=== PATIENT | male | born 1960 | race Caucasian/White ===

== ENCOUNTER → 2020-12-03 17:49 | Outpatient (CLI) | payer MEDICARE, OTHER ==
[2020-12-03 20:29] LABS: ALBUMIN 4.5 g/dL (3.4-5.0); ANION GAP 13.2 mmol/L (8-16); BILIRUBIN - TOTAL 0.62 mg/dL (0.2-1.3); CALCIUM 9.7 mg/dL (8.5-10.1); CARBON DIOXIDE 28.5 mmol/L (21.0-32.0); CREATININE - SERUM 1.3 mg/dL (0.6-1.3); POTASSIUM - SERUM 4.7 mmol/L (3.5-5.1); PROTEIN - SERUM 7.8 g/dL (6.4-8.2)
== END | disposition home or self-care (01) ==
LOC: D.LABREF 17:49
PROVIDERS: ATTEND Internal Medicine Cardiovascular Disease
DX: D64.9 Anemia, unspecified (principal)

== ENCOUNTER → 2020-12-10 07:52 | Outpatient (CLI) | payer MEDICARE, OTHER ==
--- NOTE | 2020-12-11 13:52 | ST ---
PATIENT:OSCAR MORENO MEDICAL RECORD: [id number] SEX: M LOCATION:[facility] ORDER #: ADMISSION DATE: 12/10/20 AGE OF PATIENT: 60 REFERRING PHYSICIAN: INTERPRETING PHYSICIAN: JOY GARCIA MD DATE OF SERVICE: 12/10/2020 NUCLEAR STRESS TEST GATED: Gated imaging was performed, this shows global LV hypokinesis with overall reduced LV function. Calculated EF 40%. SPECT IMAGING: SPECT imaging shows, Short axis view: Short axis view shows good uptake along the anterior wall, lateral wall, and inferior wall. Horizontal axis: This confirms good uptake along the anterior wall and inferior wall. Vertical axis: Vertical axis shows good uptake along the lateral wall and septum. FINAL IMPRESSION: 1. Abnormal gated with abnormal motion and reduced EF 40%. 2. Normal SPECT imaging. FINAL IMPRESSION: This gentleman with no known history of coronary artery disease. This scan would be concerning for balanced ischemia with reduction in EF from previously 60%, now 40%, would recommend diagnostic angiography for further evaluation. TRANSINT:[id number] Voice Confirmation ID: [id number] DOCUMENT ID: [id number] JOY GARCIA MD at 1352 CC: [id number] DICTATION DATE: 12/10/20 1634 ENGINEERING PROFESSOR: 12/11/20 0531 [facility] CLI 12/10/20 [id number] [place] [address]
== END | disposition home or self-care (01) ==
LOC: D.HCCARDIO 07:52
PROVIDERS: ATTEND Internal Medicine Interventional Cardiology
DX: I25.10 Atherosclerotic heart disease of native coronary artery without angina pectoris (principal)

== ENCOUNTER 2020-12-19 12:07 | Day surgery (SDC) | payer MEDICARE, OTHER ==
[~2020-12-19] VITALS: Ht 175.3 cm; Wt 98.8 kg
--- NOTE | ~2020-12-19 | HEMODYNAMI ---
PATIENT:OSCAR MORENO MEDICAL RECORD: [id number] : 62 LOCATION:[facility] ADMISSION DATE: 12/19/20 Generatedon:115:08 Patient name: OSCAR MORENO Patient #: [id number] SSN: [id number] : 1960 Date of study: 12/19/2020 Page: Of Hemodynamic Procedure Report Patient Data Patient Demographics Procedure consent was obtained First Name: OSCAR Gender: Male Last Name: TIFFANIE : 1960 Middle Initial: MENDEL Age: 60 year(s) Patient #: [id number] Race: Unknown SSN: [id number] Additional ID: [id number] Contact details [address]: [address] [place] [address] State: [place] City: [facility] Zip code: [address] Past Medical History Performed procedures and imaging results Date Procedure Procedure Results Comments Stress testing with Indeterminant SPECT MPI Allergies Allergen Reaction Date Comments Reported Other allergy 12/19/2020 LEVAQUIN, ROCEPHIN, SULFA Admission Admission Data Admission Date: 12/19/2020 Admission Time: 12:07 Arrival Date: 12/19/2020 Arrival Time: 0:00 Height (in.): 69 BSA: 2.14 (m2) Height (cm.): 175.26 BMI: 32.23 (kg/m2) Weight (lbs.): 218.26 Weight (kg.): 99 Lab Results Lab Result Date: 12/19/2020 Lab Result Time: 0:00 Biochemistry Name Units Result Min Max BUN mg/dl 22 --(----)-* 7 18 Creatinine mg/dl 1.2 --(---*)-- 0.6 1.3 eGFR ml/min 66 *-(----)-- 90 120 NONAFRICAN CBC Name Units Result Min Max Hematocrit % 40 -*(----)-- 42 54 Hemoglobin g/dl 13.4 -*(----)-- 13.5 17.5 Procedure Procedure Types Cath Procedure Diagnostic Procedure [facility] w/Coronaries Sedation Charges Moderate Sedation 10-24 minutes Procedure Description Procedure Date Procedure Date: 12/19/2020 Procedure Start Time: 14:44 Procedure End Time: 15:04 Procedure Staff Name Function Ranjeet Kaufman MD Performing Physician Katie Edwards RT Monitor Rosalva Houston RT Scrub Christelle Byrd RN Nurse Procedure Data Cath Procedure Fluoroscopy Diagnostic fluoroscopy Total fluoroscopy Time: 1.6 time: 1.6 min min Diagnostic fluoroscopy Total fluoroscopy dose: 536 dose: 536 mGy mGy Contrast Material Contrast Material Type Amount (ml) Isovue 300 63 Entry Location Entry Primary Successful Side Size Upsize Upsize Entry Closure Succes sful Closure Location (Fr) 1 (Fr) 2 (Fr) Remarks Device Remarks Femoral Right 5 Fr Exoseal artery Estimated blood loss: 5 ml Diagnostic catheters Device Type Used For End Catheter Placement MULTIPACK JL 4.0 5Fr Procedure catheter MULTIPACK 3DRC 5Fr Procedure catheter MULTIPACK Pigtail 5 Fr Procedure catheter Procedure Complications No complications Procedure Medications Medication Administration Route Dosage Oxygen etCO2 Nasal cannula 2 l/min Lidocaine 2% added to field 20 Heparin Flush Bag added to field 2 bags (1000units/500ml NS) 0.9% NaCl I.V. 100 ml/hr Versed I.V. 2 mg Zofran I.V. 4 mg Versed I.V. 2 mg Fentanyl I.V. 100 mcg Versed I.V. 2 mg Fentanyl I.V. 100 mcg Versed I.V. 2 mg Fentanyl I.V. 100 mcg Versed I.V. 2 mg Fentanyl I.V. 100 mcg Hemodynamics Rest BSA: 2.14 (m2) HGB: 13.4 (g/dl) O2 Consumption: Estimated: 237.82 (ml/min) O2 Co nsumption indexed: Estimated:111.13 (ml/min/m) Heart Rate: 53 (bpm) Pressure Samples Time Site Value (mmHg) Purpose Heart Use Rate(bpm) 14:55 LV 120/3,17 Snapshot 69 14:58 AO 104/65(81) Pullback 67 14:58 LV 108/5,16 Pullback 67 Gradients Valve Time Site 1 Site 2 Mean SEP/DFP Peak To Heart Use (mmHg) (sec/min) Peak Rate (mmHg) (bpm) Aortic 14:58 LV AO 15 5 4 67 108/5,16 104/65(81) Calculations Valve P-P Mean Valve Index Valve Source Name Gradient Area Flow (cm2) Aortic 4 15 4 15 Snapshots Pre Cath Intra NCS Post Cath Vital Signs Time Heart Resp SPO2 etCO2 NIBP Rhythm Pain Sedation Rate (ipm) (%) (mmHg) (mmHg) Status Level (bpm) 14:06:00 53 15 100 23.8 120/68(82) SB 0 (11) 10(A) , No pain 14:10:16 54 16 100 30.5 125/73(89) SB 0 (11) 10(A) , No pain 14:14:28 55 23 100 15.6 126/83(97) SB 0 (11) 10(A) , No pain 14:18:44 55 10 100 27.6 126/79(91) SB 0 (11) 10(A) , No pain 14:22:58 58 14 99 34.3 113/72(85) NSR 0 (11) 10(A) , No pain 14:27:12 58 12 100 35 112/72(92) NSR 0 (11) 10(A) , No pain 14:31:24 53 13 99 36.5 112/69(86) NSR 0 (11) 10(A) , No pain 14:35:34 57 12 100 26.7 114/74(90) NSR 0 (11) 10(A) , No pain 14:39:48 60 15 99 10.4 112/70(85) NSR 0 (11) 10(A) , No pain 14:45:06 60 14 95 34.3 115/67(86) NSR 0 (11) 9(A) , No pain 14:49:18 56 12 100 30 115/76(93) NSR 0 (11) 9(A) , No pain 14:53:30 67 15 98 33.5 128/79(94) NSR 0 (11) 9(A) , No pain 14:57:48 67 12 99 15.6 112/66(84) NSR 0 (11) 10(A) , No pain 15:01:56 65 13 100 33.5 125/74(87) NSR 0 (11) 10(A) , No pain Medications Time Medication Route Dose Verified Delivered Reason Notes Eff ectiveness by by 14:07:59 Oxygen etCO2 2 Ranjeet Buffie used for Nasal l/min Mandeep Byrd RN procedure cannula 14:08:05 Lidocaine 2% added 20ml Ranjeet Ranjeet for local to vial Mandeep Kaufman MD anesthetic field 14:08:14 Heparin Flush added 2 Ranjeet Ranjeet used for Bag to bags Mandeep Kaufman MD procedure (1000units/500ml field NS) 14:08:24 0.9% NaCl I.V. 100 Ranjeet Buffie Per ml/hr Mandeep Byrd RN physician 14:10:34 Zofran I.V. 4 mg Ranjeet Buffie Per Mandeep Byrd RN physician 14:12:10 Versed I.V. 2 mg Ranjeet Buffie for Mandeep Byrd RN anxiety 14:43:50 Versed I.V. 2 mg Ranjeet Buffie for Mandeep Byrd RN anxiety 14:43:57 Fentanyl I.V. 100 Ranjeet Buffie for mcg Mandeep Byrd RN sedation 14:47:19 Versed I.V. 2 mg Ranjeet Buffie for Mandeep Byrd RN anxiety 14:47:23 Fentanyl I.V. 100 Ranjeet Buffie for mcg Mandeep Byrd RN sedation 14:51:10 Versed I.V. 2 mg Ranjeet Buffie for Mandeep Byrd RN anxiety 14:51:14 Fentanyl I.V. 100 Ranjeet Buffie for mcg Mandeep Byrd RN sedation 14:55:08 Versed I.V. 2 mg Ranjeet Buffie for Mandeep Byrd RN anxiety 14:55:12 Fentanyl I.V. 100 Ranjeet Buffie for mcg Mandeep Byrd RN sedation Procedure Log Time Note 13:40:00 Christelle Byrd RN sent for patient. Start room use. 13:41:40 Informed consent obtained and on chart 13:42:01 Procedure Status Elective Heart Cath (OP). 13:42:03 Time tracking: Regular hours (M-F 7:00 - 5:00) 13:42:06 Plan of Care:Hemodynamics will remain stable., Cardiac rhythm will remain stable., Comfort level will be maintained., Respiratory function will remain adequate., Patient/ family verbilizes understanding of procedure., Procedure tolerated without complication., Recovers from procedure without complications.. 13:42:54 H&P Date Dictated: 12/03/2020 Within 30 days and on chart., H&P Addendum completed by physician on day of procedure. (MUST COMPLETE FOR ALL OUTPATIENTS). 13:43:10 Patient allergic to Other allergyLEVAQUIN, ROCEPHIN, SULFA 13:49:41 Lab Result : BUN 22 mg/dl 13:49:41 Lab Result : Creatinine 1.2 mg/dl 13:49:41 Lab Result : Hemoglobin 13.4 g/dl 13:49:41 Lab Result : eGFR NONAFRICAN 66 ml/min 13:49:41 Lab Result : Hematocrit 40 % 13:50:16 Patient Weight : 218.26 lbs 13:50:20 Patient Height : 69 inches 13:50:27 Arrival Date: 12/19/2020 12:00:00 AM 13:54:33 Stress Test: yes; abnormal [employer]. DECREASED EF. 13:56:52 Patient received from Pre/Post Procedure Room to [facility] 1 Alert and oriented. Tansferred to table in Supine position. 13:56:53 Warm blankets applied, and elkin hugger turned on for patient comfort. 13:56:53 Correct patient and procedure confirmed by team. 13:56:53 ECG and BP/O2 sat monitors applied to patient. 14:04:44 Vital chart was started 14:04:46 Baseline sample Acquired. 14:04:56 Rhythm: sinus bradycardia, paced 14:04:58 Full Disclosure recording started 14:04:58 Pre-procedure instructions explained to patient. 14:04:59 Pre-op teaching completed and patient verbalized understanding. 14:05:00 Family in patients room. 14:05:01 Patient NPO since Midnight. 14:05:02 Is the patient allergic to Iodine/contrast media? No. 14:05:03 Is patient on blood thinner?No 14:05:09 Patient diabetic? No. 14:05:11 Previous problem with sedation/anesthesia? No ? 14:05:13 Snore? Yes 14:05:14 Sleep apnea? No 14:05:16 Deviated septum? No 14:05:16 Opens mouth fully? Yes 14:05:17 Sticks out tongue? Yes 14:05:19 Airway obstruction? No ? 14:05:20 Dentures? No ? 14:05:24 Pre procedure: right dorsailis pedis pulse 1+ Palpable, but thready & weak; easily obliterated 14:05:50 PT. CHOICE TO GO GROIN DUE TO UPCOMING ACTIVITIES 14:06:35 IV patent on arrival in left antecubital with 0.9% NaCl at [facility]. 14:07:11 Lab results completed and on chart. 14:07:15 Right groin area was prepped with chlora-prep and draped in sterile fashion 14:07:19 Alarms reviewed by R. N. 14:07:19 Sharps counted by scrub and verified by R.N. 14:07:22 Use device set Femoral Dx 14:07:23 ACIST Syringe (46143) opened to sterile field. 14:07:23 Bag Decanter (2002S) opened to sterile field. 14:07:24 ACIST Manifold (66043) opened to sterile field. 14:07:24 ACIST Hand Control (32932) opened to sterile field. 14:07:25 Medline Cath Pack ([id number]) opened to sterile field. 14:07:27 Tegaderm 4 x 4 (1626W) opened to sterile field. 14:07:29 DIAGNOSTIC Multipack 5Fr catheter set (CE3780) opened to sterile field. 14:07:30 SHEATH 5FR [place] (NTB090) opened to sterile field. 14:07:30 EMERALD Guide Wire (132-723) opened to sterile field. 14:07:59 Oxygen 2 l/min etCO2 Nasal cannula was administered by Christelle Byrd RN; used for procedure; Verbal order read back and verified. 14:08:05 Lidocaine 2% 20ml vial added to field was administered by Ranjeet Kaufman MD; for local anesthetic; Verbal order read back and verified. 14:08:14 Heparin Flush Bag (1000units/500ml NS) 2 bags added to field was administered by Ranjeet Kaufman MD; used for procedure; Verbal order read back and verified. 14:08:24 0.9% NaCl 100 ml/hr I.V. was administered by Christelle Byrd RN; Per physician; Verbal order read back and verified. 14:10:34 Zofran 4 mg I.V. was administered by Christelle Byrd RN; Per physician; Verbal order read back and verified. 14:12:10 Versed 2 mg I.V. was administered by Christelle Byrd RN; for anxiety; Verbal order read back and verified. 14:31:16 Zero performed for pressure channel P1 14:42:53 --------ALL STOP TIME OUT------ 14:42:54 Final Timeout: patient, procedure, and site verified with staff and physician. All members of the team are in agreement. 14:42:55 Right groin site verified by team. 14:42:59 Fire Safety Assessment: A--An alcohol-based skin anteseptic being used preoperatively., C--Open oxygen or nitrous oxide is being used., D--An ESU, laser, or fiber-optic light is being used. 14:43:02 Physical assessment completed. ASA score P 2 - A patient with mild systemic disease as per Ranjeet Kaufman MD. 14:43:05 2) 60-89 Mildly reduced kidney function, and other findings (as for stage 1) point to kidney disease. 14:43:08 Maximum allowable contrast dose (3.7 X eGFR X 0.75)183 ml. 14:43:12 Sedation plan: IV Moderate Sedation Medication:Versed, Fentanyl 14:43:50 Versed 2 mg I.V. was administered by Christelle Byrd RN; for anxiety; Verbal order read back and verified. 14:43:57 Fentanyl 100 mcg I.V. was administered by Christelle Byrd RN; for sedation; Verbal order read back and verified. 14:44:40 Procedure started. 14:44:44 Zero performed for pressure channel P1 14:44:49 Zero performed for pressure channel P1 14:44:55 Local anesthetic to right femoral artery with Lidocaine 2% by Ranjeet Kaufman MD.INITIAL ACCESS ONLY 14:47:19 Versed 2 mg I.V. was administered by Christelle Byrd RN; for anxiety; Verbal order read back and verified. 14:47:23 Fentanyl 100 mcg I.V. was administered by Christelle Byrd RN; for sedation; Verbal order read back and verified. 14:48:50 A 5 Fr sheath was inserted into the Right Femoral artery 14:49:00 A MULTIPACK JL 4.0 5Fr catheter was advanced over the wire and used for Procedure. 14:50:55 LCA angiography performed. 14:51:10 Versed 2 mg I.V. was administered by Christelle Byrd RN; for anxiety; Verbal order read back and verified. 14:51:14 Fentanyl 100 mcg I.V. was administered by Christelle Byrd RN; for sedation; Verbal order read back and verified. 14:51:30 Catheter exchanged over wire. 14:51:43 A MULTIPACK 3DRC 5Fr catheter was advanced over the wire and used for Procedure. 14:52:32 RCA angiography performed. 14:52:47 Catheter exchanged over wire. 14:52:49 ACCDominant side:Co-Dominant 14:53:10 A MULTIPACK Pigtail 5 Fr catheter was advanced over the wire and used for Procedure. 14:54:39 LV gram done using NASCIMENTO 14:54:44 Injector settings: Ml/sec: 10, Volume: 20, 14:55:08 Versed 2 mg I.V. was administered by Christelle Byrd RN; for anxiety; Verbal order read back and verified. 14:55:12 Fentanyl 100 mcg I.V. was administered by Christelle Byrd RN; for sedation; Verbal order read back and verified. 14:55:29 LV hemodynamics recorded. 14:57:30 EF : 60 % 14:59:06 Catheter removed. 14:59:09 EXOSEAL 5Fr (EX500) opened to sterile field. 15:01:03 Sheath removed intact; hemostasis achieved with Exoseal to the Right Femoral artery. 15:01:06 Procedure ended.(Physican Out) 15:01:39 Contrast amount:Isovue 300 63ml. 15:01:52 Fluoroscopy time 01.60 minutes. 15:01:57 Flurop Dose total: 536 15:01:57 Fluoroscopy dose: 536 mGy 15:02:06 Dose Area Product 64213 mGy/cm. 15:02:11 Sharps counted by scrub and verified by R.N. 15:02:14 Maximum allowable dose exceeded? No. 15:02:17 Post-op/insertion site Right Femoral artery dressed using a 4 x 4 and Tegaderm. 15:02:19 Post-procedure physical assessment completed. ASA score P 2 - A patient with mild systemic disease as per Ranjeet Kaufman MD. 15:02:22 Post procedure rhythm: sinus rhythm 15:02:26 Estimated blood loss: 5 ml 15:02:34 Post procedure instruction explained to patient.Patient verbalizes understanding. 15:02:34 Patient needs reinforcement of post procedure teaching. 15:03:41 Procedure type changed to Cath procedure, Diagnostic procedure, LHC, C w/Coronaries, Sedation Charges, Moderate Sedation 10-24 minutes 15:04:32 Procedure and supply charges have been captured, reviewed, submitted and are correct. 15:04:35 Procedure Complication : No complications 15:04:37 Vital chart was stopped 15:04:38 [facility] Findings: mild to moderate CAD (<70%) 15:04:40 Operative report dictated upon procedure completion. 15:04:40 See physician's report for complete and final results. 15:04:41 Report given to Pre/Post Procedure Room. 15:04:43 Patient transfered to Pre/Post Procedure Room with Bed. 15:04:45 Procedure ended. 15:04:45 Full Disclosure recording stopped 15:05:22 End room use (Document Last) 15:07:52 End room use (Document Last) 15:08:09 End room use (Document Last) Device Usage Item Name Manufacture Quantity Catalog Hospital Part Current Minimal L ot# / Number Charge Number Stock Stock Serial# Code ACIST Acist 1 57638 775607 267953 468429 20 Syringe Medical (93815) Systems Inc Bag Microtek 1 2001S 541919 47471 995642 5 Decanter Medical Inc. (2001S) ACIST Acist 1 35695 105545 288521 883349 5 Manifold Medical (78057) Systems Inc ACIST Hand Acist 1 09267 252391 510917 723184 5 Control Medical (24793) Systems Inc Medline Medline 1 [id number] 672318 28904 357968 5 Cath Pack ([id number]) Tegaderm 4 3M 1 1626W 860251 760998 335800 5 x 4 (1626W) DIAGNOSTIC Cardinal 1 GN1633 531920 84264 612532 30 Multipack Health 5Fr catheter set (IE1020) SHEATH 5FR [place]umo 1 QKP358 000953 172871 699708 5 [place] (GRN077) EMERALD Cardinal 1 502-455 567216 153103 491449 5 Guide Wire Health (502-660) MULTIPACK Cardinal 1 660466 5 JL 4.0 5Fr Health catheter MULTIPACK Cardinal 1 602090 5 3DRC 5Fr Health catheter MULTIPACK Cardinal 1 012675 5 Pigtail 5 Health Fr catheter EXOSEAL 5Fr Cardinal 1 EX500 047776 246788 982271 10 (EX500) Health Signature Audit [place] Stage Time Signature Unsigned Intra-Procedure 12/19/2020 Katie Edwards 3:07:52 PM RT(R) Intra-Procedure 12/19/2020 Christelle Byrd RN 3:08:09 PM Intra-Procedure 12/19/2020 Ranjeet Kaufman MD 3:08:45 PM [place] [id number] [place] [id number]
[2020-12-19] MEDS ORDERED: PROTONIX40 MG PO (12:35)
[2020-12-19] MEDS ORDERED: NORPACE100 MG PO (12:35)
[2020-12-19] MEDS ORDERED: LOPRESSOR25 MG PO (12:36)
[2020-12-19] MEDS ORDERED: COZAAR100 MG PO (12:37)
[2020-12-19] MEDS ORDERED: CHLORTHALIDONE25 MG PO (12:38)
[2020-12-19] MEDS ORDERED: ALDACTONE25 MG PO (12:38)
[2020-12-19] MEDS ORDERED: CRESTOR20 MG PO (12:40)
[2020-12-19] MEDS ORDERED: LEXAPRO20 MG PO (12:40)
[2020-12-19] MEDS ORDERED: NORVASC5 MG PO (12:40)
[2020-12-19] MEDS ORDERED: FERROUS SULFAT325 MG PO (12:41)
[2020-12-19] MEDS ORDERED: MULTI-DAY VITAM1 TAB PO (12:42)
[2020-12-19] MEDS ORDERED: ACETAMINOP160 MG/5 M PO (12:43)
[2020-12-19] MEDS ORDERED: ACETAMINOPHEN325 MG PO (12:44)
[2020-12-19] MEDS ORDERED: MAG-OX 400 MG400 MG PO (12:44)
[2020-12-19] MEDS ORDERED: AMBIEN10 MG PO (12:45)
[2020-12-19] MEDS ORDERED: XANAX1 MG PO (12:45)
[2020-12-19 13:08] VITALS: BP 120/69; Ht 175.3 cm; Wt 98.8 kg
[2020-12-19 13:24] LABS: BASOPHILS 0.3 % (0-2); EOSINOPHILS 1.1 % (0-7); HEMOGLOBIN 13.4 g/dL (13.5-17.5); IMMATURE GRANULOCYTES 0.6 % (0-5); LYMPHOCYTE ABS# 1.46 10x3/uL (1.32-3.57); LYMPHOCYTES 22.7 % (15-50); MCH 28.3 pg (26.0-34.0); MCHC 33.5 g/dL (31.0-37.0); MCV 84.6 fL (80.0-100.0); MEAN PLATELET VOLUME 9.4 fL (7.4-10.4); MONOCYTES 8.9 % (2-11); NEUTROPHIL ABS# 4.27 10x3/uL (1.78-5.38); NEUTROPHILS 66.4 % (40-80); PLATELET COUNT 267 10x3/uL (130-400); RBC 4.73 10x6/uL (4.20-6.10); RDW 13.4 % (11.5-14.5); WBC 6.4 10x3/uL (4.8-10.8)
[2020-12-19 13:37] LABS: ANION GAP 12.8 mmol/L (8-16); CALCIUM 9.8 mg/dL (8.5-10.1); CARBON DIOXIDE 27.5 mmol/L (21.0-32.0); CHOL - HDL RATIO 2.9 ratio (2.3-4.9); CREATININE - SERUM 1.2 mg/dL (0.6-1.3); POTASSIUM - SERUM 4.3 mmol/L (3.5-5.1)
--- NOTE | 2020-12-19 15:15 | NUR ---
PT REC'D TO [facility] RECOVERY ROOM 3 VIA STRETCHER. MONITORS ESTAB. AT BS. SEE POST CATH CEMENT BREAKER. ALARMS ON AND C/L IN REACH.
--- NOTE | 2020-12-19 15:30 | NUR ---
DR. FRASER AT , DISCUSSING RESULTS WITH PT AND HIS . R GROIN EXOSEAL SITE C/D/I, NO S/S BLEEDING OR HEMATOMA. R LEG/FOOT WARM WITH PALP PULSES AND CAP REFILL WNL. VSS. PT DENIES PAIN OR NEEDS.
--- NOTE | 2020-12-19 16:00 | NUR ---
R GROIN EXOSEAL SITE SOFT, NO S/S BLEEDING OR HEMATOMA. PULSES PALP. PT TAKING SIPS OF WATER, DENIES PAIN OR NEEDS. VSS. ALARMS ON AND C/L IN REACH.
--- NOTE | 2020-12-19 16:15 | NUR ---
R GROIN EXOSEAL SITE SOFT, NO S/S BLEEDING OR HEMATOMA. PT RESTING QUIETLY, DENIES PAIN OR NEEDS. ALARMS ON AND C/L IN REACH.
--- NOTE | 2020-12-19 16:30 | NUR ---
R GROIN SITE SOFT, NO S/S BLEEDING OR HEMATOMA, PULSES PALP. HOB GRADUALLY ELEVATED. GIVEN COLA AND CRACKERS PER REQUEST. AT BS. VSS. C/L IN REACH.
--- NOTE | 2020-12-19 17:00 | NUR ---
R GROIN SITE SOFT, C/D/I, NO S/S BLEEDING OR HEMATOMA. PULSES PALP. PT DENIES PAIN OR NEEDS. ALARMS ON AND C/L IN REACH.
--- NOTE | 2020-12-19 17:26 | NUR ---
ALL DISCHARGE INSTRUCTIONS REVIEWED WITH PT AND HIS , INCLUDING RESTRICTIONS, MEDS AND F/U APPT, BOTH VERBALIZE UNDERSTANDING. PIV D/C'D INTACT, DSG APPLIED. PT ALLOWED UP TO GET DRESSED AND GO TO BATHROOM INDEPENDENTLY.
--- NOTE | 2020-12-19 17:32 | NUR ---
PT D/C'D VIA W/C TO PRIVATE VEHICLE WITH ALL PAPERWORK AND BELONGINGS.
== END 2020-12-19 17:32 | disposition home or self-care (01) ==
LOC: D.CATH 12:07
PROVIDERS: ATTEND Internal Medicine Cardiovascular Disease
DX: R94.39 Abnormal result of other cardiovascular function study (principal); I25.118 Atherosclerotic heart disease of native coronary artery with other forms of angina pectoris; I48.0 Paroxysmal atrial fibrillation; Z95.810 Presence of automatic (implantable) cardiac defibrillator; I42.9 Cardiomyopathy, unspecified